=== PATIENT | female | born 1955 | race Two or more races ===

== ENCOUNTER → 2021-10-06 | Day surgery (SDC) | payer OTHER, MEDICAID ==
[2021-10-04 14:23] LABS: Basophils # (auto) 0.1 10 ^3/uL (0-0.2); Basophils % (auto) 1.1 % (0.0-2.0); Eosinophils # (auto) 0.2 10 ^3/uL (0-0.8); Eosinophils % (auto) 2.4 % (0.0-7.0); Hematocrit 38.8 % (36.0-46.0); Hemoglobin 12.8 g/dL (12.2-16.2); Lymphocytes # (auto) 2.4 10 ^3/uL (0.4-5.4); Lymphocytes % (auto) 26.6 % (10.0-50.0); Mean Corpuscular Hemoglobin 27.3 pg (28.0-32.0); Mean Corpuscular Hgb Conc. 32.9 g/dL (32.0-36.0); Monocytes # (auto) 0.4 10 ^3/uL (0-1.3); Monocytes % (auto) 4.7 % (0.0-12.0); Neutrophils # (auto) 5.9 10 ^3/uL (1.6-8.6); Neutrophils % (auto) 65.2 % (37.0-80.0); Nucleated Red Blood Cells % 0.1 %; Red Blood Cells 4.67 10^6/uL (4.0-5.20); Red Cell Distribution Width 14.6 % (11.8-14.3); White Blood Cell 9.1 10^3/uL (4.4-10.8)
[2021-10-04 15:02] LABS: Albumin 3.6 g/dL (3.4-5.0); Calcium 8.7 mg/dL (8.5-10.1); Potassium 4.2 mmol/L (3.5-5.1)
[2021-10-04 15:06] LABS: BUN/Creatinine Ratio 25.6; Bilirubin, Total 0.2 mg/dL (0.2-1.0); Total Protein 7.2 g/dL (6.4-8.2)
[~2021-10-06] VITALS: Ht 149.9 cm; Wt 63.5 kg
[~2021-10-06] MED LIST: ERTU15TA PO; GLIP10TA9 PO; INSLANTI SC; INSU100I2 SC; LIDOCAINE VISCOUS 2% 15ML UD ONE; METF-372 PO; TELM80TA PO; diphenhdrAMINE HCL 50 MG/1 ML VL ONE
[2021-10-06] MEDS: MIDAZOLAM HCL 5 MG/ML-1ML VIAL ONE ×4 (12:52→13:01)
[2021-10-06] MEDS: fentaNYL CITRATE 100 MCG/2 ML VL ONE ×3 (12:52→12:58)
[2021-10-06 13:45] VITALS: BP 106/45
== END | disposition home or self-care (01) ==
LOC: GI 12:19
PROVIDERS: ATTEND Internal Medicine Gastroenterology
DX: R10.13 Epigastric pain (principal); K29.50 Unspecified chronic gastritis without bleeding; B37.81 Candidal esophagitis; K21.00 Gastro-esophageal reflux disease with esophagitis, without bleeding; K44.9 Diaphragmatic hernia without obstruction or gangrene; K29.90 Gastroduodenitis, unspecified, without bleeding; I10 Essential (primary) hypertension; E78.5 Hyperlipidemia, unspecified; E11.9 Type 2 diabetes mellitus without complications; I20.9 Angina pectoris, unspecified; Z90.49 Acquired absence of other specified parts of digestive tract; Z90.710 Acquired absence of both cervix and uterus; Z20.822 Contact with and (suspected) exposure to COVID-19
CPT/HCPCS: 36415; 43239; 80053; 85025; 88305; 88312; 88313; 88342; J1200; J2250; J3010; J7030; U0003; G0500